=== PATIENT | female | born 1985 | race Two or more races ===

== ENCOUNTER 2024-05-05 12:06 | Emergency (ER) | payer MEDICAID, SELFPAY ==
[2024-05-05 12:22] VITALS: PULSE 115
--- NOTE | 2024-05-05 12:22 | XR_ITS ---
Examination: AP chest single view Technique one AP portable sitting chest single view Exam date and time: May 05, 2024 1301 hours INDICATIONS: Sepsis protocol FINDINGS: Normal heart size Lungs are clear. The osseous structures are intact IMPRESSION: No active disease
--- NOTE | 2024-05-05 12:22 | EKG_ITS ---
[facility] Test Date: 2024-05-05 Pat Name: NILES PLATT Department: Room: - Gender: Female Form Drafter: : 1985 Requested By: Craig Bah Order Number: [id number] Reading MD: Craig Bah Measurements Intervals [place] Rate: 110 P: 46 FL: 118 QRS: -20 QRSD: 77 T: -35 QT: 297 QTc: 403 Interpretive Statements SINUS TACHYCARDIA WITH SHORT FL INTERVAL LOW QRS VOLTAGE IN PRECORDIAL LEADS [QRS DEFLECTION < 1.0 mV IN CHEST LEADS] POSSIBLE RIGHT VENTRICULAR CONDUCTION DELAY [RSR (QR) IN V1/V2] POSSIBLE ANTERIOR MYOCARDIAL INFARCTION , OF INDETERMINATE AGE [30 ms Q WAVE IN V3/V4, OR R < 0.2 mV IN V4] MODERATE T-WAVE ABNORMALITY, CONSIDER LATERAL ISCHEMIA [-0.1+ mV T WAVE IN I/aVL/V5/V6] No previous ECG available for comparison /store/[email or web address]/[id number].pdf
--- NOTE | 2024-05-05 12:24 | EDNOTE_ITS ---
<Statement entered by Selina Gomez MD - 05/11/24 16:36> As co-signing physician, I was present and available for consult prn. I concur with the plan and care as documented by the midlevel provider. ED Fever RME/HPI General Chief Complaint: Fever Stated Complaint: FEVER 103.0, SEVERE HEADACHE, NAUSEA, HR 152 Time Seen by Provider: 05/05/24 12:17 Arrival date/time: 05/05/24 12:06 38 year old female present to emergency room with c/o of fever, headache, nausea, and back pain for 2 days, Pt report urine bad odor today. denies any sick contact and significant past medical history. SEVERITY: Symptoms are described as being severe with limitations on activities of daily living CONTEXT: The patient is unable to identify any inciting events. DURATION/TIMING: The symptoms started approximately 2 days ago and have been constant since and have been progressive getting worse. ASSOCIATED SYMPTOMS: fever, chills, nausea, urine odor, urgency, flank/back pain, headache dizziness MODIFYING FACTORS: The patient is unable to identify any alleviating or aggravating symptoms. PERTINENT ROS: no cough, no pleuritic pain, no ripping or tearing sensations, denies any lower extremity edema and no unilateral swelling, no chest pain/shortness of breath no vomiting, diarrhea, no rash no loc/syncope episode no abd/pain REVIEW OF SYSTEMS: See History of Present Illness - with the exception of those mentioned in the history of present illness, all other systems reviewed and reported as negative GENERAL: In general the patient is awake, interactive, in an emergency department gurney. HEAD/EYES/EARS/NOSE/THROAT: normo-cephalic, atraumatic, mucus membranes are moist, anicteric, palpebral conjunctiva is pink, trachea is midline. CARDIOVASCULAR: regular rate and regular rhythm, no murmurs, heart sounds are not distant, strong pulses in all four extremities that are equal and symmetric bilateral upper and lower extremities, normal capillary refill. CHEST/PULMONARY: + sinus tachycardia normal chest rise and fall, good air movement, clear to auscultation bilaterally, normal inspiratory to expiratory ratios without evidence of respiratory distress. NECK: No midline/Paraspinal tenderness, no step off ROM/Strenght intact No Kernig and bruzinski sign. No trauma ABDOMEN: soft, not tender, no masses appreciated BACK: normal range of motion without pain. NEUROLOGICAL: cranio-facial features are symmetric, moves all four extremities equally without obvious limitations or weakness. EXTREMITY: no tenderness to palpation over the long bones or large joints of the bilateral upper and lower extremities, no joint swelling, no joint erythema, no signs of trauma, no unilateral leg swelling and no peripheral edema. SKIN: warm, dry, well-perfused, no jaundice, no rash, no telangiectasias or petechia. PSYCH: calm, cooperative, no evidence of psychosis or agitation Related Data Home Medications ?Medication ?Instructions ?Recorded ?Confirmed prenat.vits,ramon,[id number] 1 tab PO 02/02/21 Previous Rx's ?Medication ?Instructions ?Recorded ibuprofen 600 mg tablet 600 mg PO Q6H PRN fever or pain 30 02/18/21 days #60 tabs cephalexin 500 mg capsule 500 mg PO QID 10 days #40 caps 05/05/24 ibuprofen 800 mg tablet (IBU) 800 mg PO Q8H PRN pain #30 tabs 05/05/24 ondansetron 4 mg disintegrating 4 mg PO Q8H PRN nausea and 05/05/24 tablet vomiting #20 tabs Allergies Allergy/AdvReac Type Severity Reaction Status Date / Time No Known Allergies Allergy Verified 05/05/24 12:10 Course Course Course Narrative: Plan sepsis called 1225 sepsis protocol placed 1 gram of rocephin, 1gram of tylenol, 1 NS IV fluids Quality Measures Possible source: genitourinary Blood cultures ordered: completed in ED Antibiotic ordered: Yes Pertinent labs: 05/05/24 12:53 Lactic Acid 1.6 mMol/L (0.4-2.0) Procalcitonin 0.08 ng/ml (0.0-0.49) sepsis Orders Category Date Time Status Bedside Blood Glucose NOW Care 05/05/24 12:22 Active Bedside COVID-19 Antigen Test NOW Care 05/05/24 12:18 Active Bedside Influenza A&B Antigen Test NOW Care 05/05/24 12:18 Completed [employer] Q4H START 00 Care 05/05/24 12:22 Active Insert IV NOW Care 05/05/24 12:22 Active Strict Intake and Output Routine Care 05/05/24 12:22 Ordered XR chest 1V SEPSIS PROTOCOL Stat Exams 05/05/24 12:22 Completed Blood Culture (Lab) Stat Lab 05/05/24 12:48 Received CBC Stat Lab 05/05/24 12:53 Completed Comprehensive Metabolic Panel Stat Lab 05/05/24 12:53 Completed HCG,Qualitative Serum Stat Lab 05/05/24 12:53 Completed Lactate (Lactic Acid) Stat Lab 05/05/24 12:53 Completed Lipase Stat Lab 05/05/24 12:53 Completed Partial Thromboplastin Time Stat Lab 05/05/24 12:53 Received Procalcitonin Stat Lab 05/05/24 12:53 Completed Prothrombin Time with INR Stat Lab 05/05/24 12:53 Received Troponin I Stat Lab 05/05/24 12:53 Completed UA [Urinalysis] Stat Lab 05/05/24 13:50 Completed Urine Culture Stat Lab 05/05/24 13:50 Received Acetaminophen Tab [Tylenol ES Tab] Med 05/05/24 12:23 Discontinued 1,000 mg PO X1 ONE Ondansetron Inj [Zofran Inj] Med 05/05/24 12:23 Discontinued 4 mg IV X1 ONE Sodium Chloride 0.9% 1000 ml [Ns] 1,000 ml Med 05/05/24 12:23 Discontinued IV 999 mls/hr Sodium Chloride 0.9% 1000 ml [Ns] 1,000 ml Med 05/05/24 12:58 Discontinued IV 999 mls/hr cefTRIAXone/D5w 1gm IV premix [Rocephin/D5w 1gm IV Med 05/05/24 14:00 Discontinued premix] 50 ml IV X1 EKG (RT) Stat RT 05/05/24 12:22 Draft Oxygen Delivery NOW RT 05/05/24 12:22 Active Reevaluation(s) Reevaluation #1: 1300 patient is feeling better, labs pending Reevaluation #2: 5463 spoke with patient about labs unremarkable exception for UTI, possible early kidney infection 1 gram of rocephin and rx Keflex 500mg qid for 10 day, zofran 4mg and IBU 800mg Return to Ed if symptoms worsen . pt is comfortable with treatment and plan Vital Signs Vital signs: Vital Signs Pulse Rate 115 H 05/05/24 12:22 Procedures -ED EKG Interpretation #1: Date of EK05/05/24 Time of EK:46 Rate: 113 Interpretation: Reviewed by me EKG Impression: No acute ST-T changes, No ischemic changes and Sinus tachycardia Fever Patient data External records reviewed:: [facility] previous records Clinical information provided by:: patient Social determinants that could affect healthcare access:: none Patient has the following chronic illnesses:: none How is presenting disease/condition affected by chronic disease/condition?: no chronic disease Evaluation data The following diagnostics were reviewed and interpreted by me:: lab results, radiology exam(s) and EKG tracing(s) Lab and/or radiology exams considered but not ordered:: none Interpretation Summary: cbc: No elevated wbc no anemia no shift cmp: no dehydration on renal/liver failure UA: + nitrate + wbc will tx for kidney infection Trop: Negative Covid/Flu: negative CXR: FINDINGS: Normal heart size Lungs are clear. The osseous structures are intact IMPRESSION: No active disease hcg: negaive Medications / Prescriptions Medications or Prescriptions considered but not ordered:: none Medication administrations:: Medication Administration History Discontinued Medications Acetaminophen (Acetaminophen 500 Mg Tablet) 1,000 mg PO X1 ONE Stop: 05/05/24 12:24 Last Admin: 05/05/24 12:39 Dose: 1,000 mg Documented By: OLVIN Sodium Chloride (Ns) 1,000 mls @ 999 mls/hr IV .Q1H1M ONE Stop: 05/05/24 13:23 Last Infusion: 05/05/24 14:05 Dose: Infused Documented By: Admin: 05/05/24 12:39 Dose: 999 mls/hr Documented By: OLVIN Sodium Chloride (Ns) 1,000 mls @ 999 mls/hr IV .Q1H1M ONE Stop: 05/05/24 13:58 Last Infusion: 05/05/24 14:39 Dose: Infused Documented By: Admin: 05/05/24 14:06 Dose: 999 mls/hr Documented By: OLVIN Ceftriaxone Sodium/Dextrose (Rocephin/D5w 1gm Iv Premix) 50 mls @ 100 mls/hr IV X1 ONE Stop: 05/05/24 14:29 Last Admin: 05/05/24 14:46 Dose: 100 mls/hr Documented By: EMILIA Ondansetron HCl (Ondansetron Inj 2 Mg/Ml Inj 2 Ml) 4 mg IV X1 ONE; Protocol Stop: 05/05/24 12:24 Last Admin: 05/05/24 12:39 Dose: 4 mg Documented By: SL as stated Consultations Consultation(s) initiated? (list below): No Diagnosis Fever Differential Diagnosis: fever of unknown origin, gastroenteritis, community acquired pneumonia, pyelonephritis, sepsis, influenza and other (UTI) Most likely diagnosis given after review of the tests above:: UTI vs early kidney infection Admission Indicated Admission indicated?: not indicated Admission Request Was there a request for admission?: Yes Admission Attestation Admission request attestation: Discussed case with [] from Hospitalist service regarding admission. Discussed patients ED course, exam findings, labs, and radiology results. The Hospitalist [agrees,declines] to accept the patient for admission. Disposition Plan Disposition Plan: Discharge Discharge Attestation Discharge Attestation: The patient and all family members were given an opportunity to ask questions and understood the discharge instructions. Discharge instructions specifically effects, indications for sooner follow up or return to the emergency department, and the expected course of current diagnosis. Patient condition: Stable Discharge Plan Plan Patient Disposition: HOME (Self Care) Health Concerns: Follow with PMD as directed Take tylenol or motrin as need Return to ED if sx worsen Prescriptions/Referrals Prescriptions/Med Rec: New cephalexin 500 mg capsule 500 mg PO QID 10 Days Qty: 40 0RF ondansetron 4 mg tablet,disintegrating 4 mg PO Q8H PRN (Reason: nausea and vomiting) Qty: 20 0RF ibuprofen [IBU] 800 mg tablet 800 mg PO Q8H PRN (Reason: pain) Qty: 30 0RF No Action ibuprofen 600 mg tablet 600 mg PO Q6H MDD 4 PRN (Reason: fever or pain) 30 Days Qty: 60 1RF prenat.vits,ramon,[id number]-[id number]-fdzim Tablet 1 tab PO Referrals: No Primary/Family,Physician [Primary Care Provider] - In 1 week Problem List Clinical Impression: Pyelonephritis Patient/Caregiver Discharge Instructions Education Materials: ED Pyelonephritis, Female (Adult) Print Language: Kyrgyz Stand Alone Forms: Liseth Award Info., Patient Portal Info Letter
[2024-05-05 12:39] VITALS: BP 133/87; PULSE 118; RESP 20; TEMP 38.3; O2SAT 98
[2024-05-05] MEDS: ACETAMINOPHEN 500 MG TABLET 1000 MG PO (12:39)
[2024-05-05] MEDS: SODIUM CHLORIDE 0.9% 1000 ML 1,000 ML 999 ML IV ×2 (12:39→14:06)
[2024-05-05] MEDS: ONDANSETRON INJ 2 MG/ML INJ 2 ML 4 MG IV (12:39)
[2024-05-05 13:03] LABS: Basophils % (Auto) 0 % (0-2.5); Eosinophils % (Auto) 0 % (0-10); Hematocrit 38.6 % (36.0-46.0); Hemoglobin 13.2 g/dL (12.0-16.0); Immature Granulocytes % (Auto) 0 % (0-0); Immature Granulocytes Auto 0.03 Thou/mm3 (0.00-0.00); Lactate (Lactic Acid) 1.6 mMol/L (0.4-2.0); Lymphocytes # (Auto) 0.9 Thou/mm3 (1.0-4.8); Lymphocytes % (Auto) 9 % (10-50); Mean Corpuscular HGB Conc 34.2 g/dl (31.0-37.0); Mean Corpuscular Hemoglobin 31.2 pg (25.0-35.0); Mean Corpuscular Volume 91 fL (80-100); Monocytes # (Auto) 0.9 Thou/mm3 (0.0-0.8); Monocytes % (Auto) 8 % (0-12); Neutrophils % (Auto) 82 % (37-80); Nucleated Red Blood Cell % 0 /100 WBC (0); Platelet Count 263 Thou/mm3 (140-440); RDW Standard Deviation 40.5 fL (36.4-46.3); Red Blood Count 4.23 Miln/mm3 (4.00-5.20); White Blood Count 10.9 Thou/mm3 (3.6-11.0)
[2024-05-05 13:17] LABS: HCG,Qualitative Serum Negative
[2024-05-05 13:33] LABS: Alanine Aminotransferase 10 U/L (10-49); Albumin, Serum 4.9 gm/dL (3.5-5.0); Albumin/Globulin Ratio 1.5 (1.2-2.2); Alkaline Phosphatase 59 U/L (46-116); Anion Gap 8 (7-16); BUN/Creatinine Ratio 12 Ratio (12-20); Bilirubin,Total 0.7 mg/dL (0.3-1.2); Blood Urea Nitrogen 7 mg/dL (9-23); Calcium 9.9 mg/dL (8.3-10.6); Calcium (Corrected) 9.9 mg/dL (8.5-10.1); Carbon Dioxide 24.1 mMol/L (20.0-31.0); Chloride 104 mMol/L (98-107); Creatinine (Component) 0.6 mg/dL (0.6-1.3); Globulin 3.3 gm/dL (2.3-3.5); Glucose 99 mg/dL (74-106); Lipase 29 U/L (12-53); Osmolality,Calculated 269 (275-295); Potassium 3.9 mMol/L (3.4-5.1); Procalcitonin 0.08 ng/ml (0.0-0.49); Sodium 136 mMol/L (136-145); Total Protein 8.2 gm/dL (5.7-8.2); Troponin I < 0.002 ng/mL (0.0-0.045); eGFR > 60 See Note
[2024-05-05 13:34] LABS: Aspartate Amino Transferase < 8 U/L (0-34)
[2024-05-05 14:03] LABS: Collection Type, Urine Clean Catch; Squamous Epithelial Cell,Urine 0 /hpf (0-5)
[2024-05-05 14:24] LABS: Bacteria,Urine 1+; Bilirubin,Urine Negative (Negative); Blood,Urine 2+ (Negative); Clarity,Urine Clear (Clear/Hazy); Color,Urine Colorless (Lt Yel-Yel); Glucose, Urine Negative (Negative); Ketones,Urine Negative (Negative); Leukocyte Esterase,Urine Negative (Negative); Nitrite,Urine Positive (Negative); PH,Urine 7.5 (5.0-7.0); Protein,Urine Trace (Neg - Trace); RBC,Urine 8 /hpf (0-3); Specific Gravity,Urine 1.009 (1.001-1.035); Urobilinogen,Urine Negative mg/dL (0.0-1.0); WBC,Urine 10 /hpf (0-5)
[2024-05-05] MEDS: cefTRIAXone/D5w 1gm IV premix 50 ML IV (14:46)
[2024-05-05 14:48] VITALS: TEMP 37.1
[2024-05-05 14:49] VITALS: BP 116/76; PULSE 84; RESP 18; TEMP 37.1; O2SAT 100
[2024-05-05 14:51] VITALS: BP 112/75; PULSE 92; RESP 16; O2SAT 98
[2024-05-05 15:02] LABS: Partial Thromboplastin Time 25.4 Seconds (22.0-36.0); Prothrombin Time 10.7 Seconds (9.0-12.2)
[2024-05-05] MEDS: KETOROLAC INJ 30 MG/ML VIAL IVP (15:42)
== END 2024-05-05 14:51 | disposition home or self-care (01) ==
PROVIDERS: Physician Assistant; Emergency Provider Emergency Medicine
DX: N12 Tubulo-interstitial nephritis, not specified as acute or chronic (principal); R00.0 Tachycardia, unspecified
CPT/HCPCS: 36415; 71045; 80053; 81001; 83605; 83690; 84145; 84484; 84703; 85025; 85610; 85730; 87040; 87077; 87086; 87186; 87400; 87811; 93005; 96365; 96375; 99284; J0696; J1885; J2405; J7030; A9270